=== PATIENT | female | born 1990 | race Caucasian/White ===

== ENCOUNTER 2020-06-17 07:28 | Inpatient (IN) | payer SELFPAY ==
[2020-06-17] VITALS (35 sets, daily range): BP systolic 0–170; BP diastolic 0–107; PULSE 73–104; RESP 16–23; TEMP 36.2–37.1; O2SAT 95–99; BMI 32.5
[2020-06-17] MEDS: dextrose 5%-lactated ringers 1,000 ML 125 ML IV (07:34)
[2020-06-17] MEDS: oxytocin 30 UNIT/500 ML BAG 600 UNIT IV (07:48)
--- NOTE | 2020-06-17 08:09 | PM.HP ---
Providers/Chief Complaint Admitting Physician: Andrew Renteria MD Chief Complaint: Abdominal pain History of Present Illness Madeline Castillo is a 30 year old G4 now P4 with unknown NASH who presented to labor and delivery with contractions and the need to push. The patient had no care and was planning to deliver at home. Her contractions started at 5:30 AM on 06/17/2020. The patient's pain continued to worsen and she presented to labor and delivery around 7:15 AM on 06/17/2020. I was contacted and unfortunately could not make it to the hospital on time for delivery of the . The patient does not know when her due date was. She was breast-feeding and was not having periods. The patient states that the last time they had unprotected sex was October 242019. That would put her at 36.6 weeks gestation. The patient denies any problems with the as far she knows, however she had no care. She says that she had high blood pressure with her prior . The patient denies any headaches, flashes of light, nausea, vomiting, diarrhea, constipation, fevers, cough. PFSH Acute PFSH: Surgical History (Updated 06/17/20 @ 08:16 by Andrew Renteria MD) No pertinent past surgical history Social History (Updated 06/17/20 @ 08:17 by Andrew Renteria MD) Smoking and tobacco status: never smoked Alcohol intake: former Former alcohol use details: Last alcohol was will be a year ago. Vitals/I&O/Wt Last Vital Signs Pulse 81 06/17/20 08:07 BP 147/80 06/17/20 08:07 Physical Exam Narrative: EXAM NARRATIVE: General: Alert and oriented x3 Eyes: Pupils equal round and reactive to light and accommodation Mouth: Mucous membranes moist, pharynx non-erythematous Cardiac: Regular rate and rhythm without murmurs Lungs: Clear to auscultation bilaterally without wheezes, crackles or rhonchi Abdomen: Soft, non-tender, fundus is firm and midline and well below the umbilicus. Extremities: Trace edema in the bilateral lower extremities A&P Assessment and plan (1) No care in current : Status: Acute (2) High blood pressure: Status: Acute (3) Intrauterine : Status: Acute Additional A&P Information The patient presented and had a precipitous delivery. Please see Labor and Delivery notes for full details. The patient has been having some heavier bleeding and she was given Cytotec 800 mcg rectally. Her bleeding is starting to slow down. She has a history of high blood pressure and her blood pressure is 147 systolic today. If needed we will give Hemabate as the next medication for bleeding control. Other than that the patient is doing well. We will get routine labs, urine drug screen, and plan for routine care otherwise. All questions were answered. Attestations Medical Necessity Statement*: The patient will be admitted and will likely be here for greater than 2 midnights. Coding Level of Care Code Acute Medical Assistant Ob Gyn for Rameshg Fwd Diagnoses No care in current O09.30 High blood pressure I10 Intrauterine Z34.90
--- NOTE | 2020-06-17 08:20 | PM.DELIVERY ---
Delivery Note: Date of delivery: June 17, 2020 Pre-delivery diagnoses: 1. Intrauterine with unknown NASH 2. History of gestational hypertension 3. History of vacuum-assisted delivery 4. History of minimal care and prior 5. No care during this Post-delivery diagnoses: 1. Intrauterine with unknown NASH 2. History of gestational hypertension 3. History of vacuum-assisted delivery 4. History of minimal care and prior 5. No care during this 6. Delivery of healthy-appearing weighing 10 pounds 0 ounces with Apgars of 8 and 9. Op report anesthesia: None Delivering Physician: I was not present for delivery of the infant but was present for delivery of the placenta. Estimated blood loss (mL): 200 Pre-Delivery Course: Roseanna is a 30-year-old G4 now P4 with unknown NASH who presented to labor and delivery via private vehicle with contractions. The OB nurse had to help the patient out of the car and into a wheelchair. The patient was pushing during this process. I was notified at 7:26 AM on 06/17/2020 that the patient was here and pushing. The patient continued to progress and SROM took place at 7:32 AM with meconium stained fluid. The head delivered at 7:34 AM. The delivered at 7:35 AM per nursing records. The cord was cut by nursing and the was taken to the warmer. Dr. Sales was in the hospital and present for delivery. I presented shortly afterwards. Cord blood was obtained. The cord was then drained of blood and the placenta delivered without complication at 7:48 AM. The placenta was noted to be intact with a central umbilical cord insertion site. The uterus was massaged and Pitocin was bolused. The uterus was noted to be firm and midline. The cervix was inspected and no clots were noted. The vaginal wall was inspected and a mild abrasion was noted on the right upper labia. The patient had some extra bleeding afterwards and 800 mcg of Cytotec were placed. We will follow for signs of further bleeding. We will give Hemabate if needed. A&P Assessment and plan (1) No care in current : Status: Acute (2) High blood pressure: Status: Acute (3) Intrauterine : Status: Acute Coding Level of Care Code Acute Clinical Applications Manager for Chg Fwd Diagnoses No care in current O09.30 High blood pressure I10 Intrauterine Z34.90
[2020-06-17] MEDS: miSOPROStol 200 mcg Tablet 800 MCG PR (08:30)
[2020-06-17] MEDS: docusate sodium 100 mg Capsule PO (09:04)
[2020-06-17] MEDS: ibuprofen 800 mg tablet PO (09:04)
[2020-06-17] MEDS: prenatal vitamin Capsule 1 CAP PO (09:04)
[2020-06-17 09:21] LABS: Hemoglobin 12.4 g/dL (11.5-15.3); Lymphocytes # 1.3 10^3/uL (0.8-4.8); Lymphocytes % 21.3 %; Mean Corpuscular HGB Conc 31.8 g/dL (30.0-36.0); Mean Corpuscular Hemoglobin 31.2 pg (28.0-34.0); Mean Corpuscular Volume 98.2 fL (81-99); Mean Platelet Volume 11.7 fL (7.4-10.4); Monocytes # 0.7 10^3/uL (0.2-0.9); Monocytes % 11.8 %; Neutrophils # 4.05 10^3/uL (1.8-7.7); Neutrophils % 66.2 %; Nucleated Red Blood Cells % 0 %; Platelet Count 186 10^3/cmm (130-400); Red Blood Count 3.97 10^6/uL (4.1-5.3); Red Cell Distribution Width 13.7 % (12.1-15.1); White Blood Count 6.1 10^3/uL (4.0-10.0)
[2020-06-17 09:33] LABS: Rubella IgG 14.1 IU/mL (0.0-10.0)
[2020-06-17 09:36] LABS: Amphetamines Screen Urine Negative (Negative); Barbiturates Screen Urine Negative (Negative); Benzodiazepines Screen Urine Negative (Negative); Cocaine Screen Urine Negative (Negative); Opiate Screen Urine Negative (Negative); PCP Screen Urine Negative (Negative); THC Screen Urine Negative (Negative)
[2020-06-17] MEDS: carboprost tromethamine 250 mcg/mL Amp IM (09:36)
[2020-06-17 09:45] LABS: Rapid Plasma Reagin Syphilis Nonreactive (Nonreactive)
[2020-06-17 10:00] LABS: Urine Creatinine 298 mg/dL (28-217)
[2020-06-17 10:12] LABS: UPRO/UCREAT Ratio 0.63 mg/mg CR; Urine Protein Random 189 mg/dL
[2020-06-17] MEDS: HYDROcodone-acetaminophen 5-325 mg Tablet PO (10:12)
[2020-06-17] MEDS: labetalol 5 mg/mL SDV 20mL 20 MG IVP (10:19)
[2020-06-17 10:24] LABS: HIV 1 & 2 Antibody Non-Reactive (Non-Reactiv); HIV 1 & 2 Antigen Non-Reactive (Non-Reactiv)
[2020-06-17 10:33] LABS: Hepatitis B Surface Antigen Non-Reactive (Nonreactive)
[2020-06-17] MEDS: magnesium sulfate premix 4 GM/100 ML PREMIX IV (11:00)
[2020-06-17] MEDS: dextrose 5%-lactated ringers 1,000 ML 75 ML IV (11:00)
[2020-06-17] MEDS: magnesium sulfate premix 20 GM/500 ML BAG IV ×2 (11:21→21:24)
[2020-06-17 12:20] LABS: SARS Covid-2 Antigen Negative (Negative)
--- NOTE | 2020-06-17 14:04 | PC.NURSE ---
Delivery Summary Patient arrived to ER by private vehicle. Patient pushing on arrival. Igor Solano RN instructed patient not to push and placed patient in wheelchair and brought to floor. Patient transferred to bed, SVE performed by Zuleima Puentes RN, SVE: /+1. Dr. Renteria contacted upon patient arrival to floor at 0726. Patient had no care and intended to have a home . Patient instructed not to push but continued to involuntarily push. SROM at 0732, meconium stained. Delivery of baby at 0735 by Igor Solano RN. Loose nuchal cord noted and easily reduced. Suctioned mouth and nose at perineum and then baby handed to Dr. Alexander at warmer. Dr. Renteria to room at 0745. Placenta delivered by Dr. Renteria at 0748. Patient bleeding noted to be heavy at 0805 and 800mcg cytotec was given per Dr. Renteria's orders.
--- NOTE | 2020-06-17 14:28 | PC.NURSE ---
Pt had no care.
[2020-06-17 18:34] LABS: Hematocrit 32.2 % (37.0-47.0); Hemoglobin 10.5 g/dL (11.5-15.3); Mean Corpuscular HGB Conc 32.6 g/dL (30.0-36.0); Mean Corpuscular Hemoglobin 31.6 pg (28.0-34.0); Mean Platelet Volume 10.9 fL (7.4-10.4); Platelet Count 161 10^3/cmm (130-400); Red Blood Count 3.32 10^6/uL (4.1-5.3); Red Cell Distribution Width 13.6 % (12.1-15.1); White Blood Count 5.7 10^3/uL (4.0-10.0)
[2020-06-17 18:40] LABS: Magnesium Level (OB Only) 3.9 mg/dL (5.0-7.5)
[2020-06-18] VITALS (16 sets, daily range): BP systolic 105–132; BP diastolic 16–89; PULSE 85–106; RESP 16–18; TEMP 36.4–36.8; O2SAT 96–99
[2020-06-18] MEDS: dextrose 5%-lactated ringers 1,000 ML 75 ML IV (00:29)
--- NOTE | 2020-06-18 00:31 | PC.NURSE ---
Ice chips provided
[2020-06-18 00:44] LABS: Magnesium Level (OB Only) 4.1 mg/dL (5.0-7.5)
[2020-06-18 07:23] LABS: Magnesium Level (OB Only) 4.5 mg/dL (5.0-7.5)
[2020-06-18] MEDS: magnesium sulfate premix 20 GM/500 ML BAG IV (07:58)
[2020-06-18] MEDS: prenatal vitamin Capsule 1 CAP PO (08:43)
--- NOTE | 2020-06-18 10:15 | PM.PN ---
Subjective Subjective: Interval history: The patient had elevated blood pressures after delivery into the 170s and had received labetalol wall IV. A spot urine protein creatinine ratio was done that was 0.62. Since the patient had no care and she had symptoms concerning for gestational hypertension with severe features and possibly preeclampsia with severe features, it was felt best to start her on IV magnesium. The patient has had some blurred vision with the magnesium, otherwise feels well. The patient feels that her bleeding is decreasing well. It started to decrease well after Hemabate was given yesterday. Vitals/I&O/Wt Last Vital Signs Temp 97.9 F 06/18/20 07:30 Pulse 95 06/18/20 07:30 Resp 18 06/18/20 07:30 BP 116/76 06/18/20 07:30 Pulse Ox 98 06/18/20 07:30 06/17/20 06/18/20 06/18/20 22:59 06:59 14:59 Intake Total 622.917 / 2063.750 436.25 / 2500.000 1026.25 / 1026.25 Output Total 2130 / 2830 2175 / 5005 100 / 100 Balance -1507.083 / -766.250 -1738.75 / -2505.000 926.25 / 926.25 Weight last 48 hrs Weight 220 lb Physical Exam Narrative: EXAM NARRATIVE: General: Alert and oriented x3 Eyes: Pupils equal round and reactive to light and accommodation Mouth: Mucous membranes moist, pharynx non-erythematous Cardiac: Regular rate and rhythm without murmurs Lungs: Clear to auscultation bilaterally without wheezes, crackles or rhonchi Abdomen: Soft, non-tender, fundus is firm and midline and well below the umbilicus. Extremities: Trace edema in the bilateral lower extremities Urinary Catheter Management^: Ferro: Cath Placed During This Visit: yes Reason for Continuing Indwelling Catheter: Accurate Measurement of Urinary Output in Critically Ill Patients Urinary Catheter Date of Insertion: 06/17/20 Urinary Catheter Time of Insertion: 11:10 Data : 06/17/20 17:44 Micro: Microbiology 06/17/20 08:50 Neisseria gonorrhoeae (YANY) - Final Urine Random 06/17/20 08:50 Chlamydia trachomatis (YANY) - Final Urine Random A&P Assessment and plan (1) No care in current : Status: Acute (2) Intrauterine : Status: Acute (3) Gestational hypertension: Status: Acute Additional A&P Information The patient is feeling well at this time and does have some blurred vision likely secondary to IV magnesium. Her urine output has been good and her blood pressures have been down in the 120s 130s systolic. We will go ahead and stop IV magnesium at 24 hours. We will continue to watch for a another 24 hours minimum to be sure that her blood pressures do not start to climb and that she does not have other complications. She is doing well currently. We will plan to proceed with routine care and plan for discharge home tomorrow if she continues to do well. All questions were answered. Attestations Medical Necessity Statement*: The patient will be here for greater than 2 midnights due to treatment of severe gestational hypertension . Coding Level of Care Code Acute Chemical Operations Specialist for Rameshg Fwd Diagnoses No care in current O09.30 Intrauterine Z34.90 Gestational hypertension O13.9
[2020-06-19 02:35] VITALS: BP 119/81; PULSE 89; RESP 16; O2SAT 98
[2020-06-19 04:15] VITALS: BP 118/80; PULSE 90; RESP 15; O2SAT 97
--- NOTE | 2020-06-19 07:38 | P.DS_ITS ---
Discharge Providers Date of Admission: 06/17/20 07:28 Date of Discharge: June 19, 2020 Attending Provider at Admission: Andrew Renteria MD Attending Provider at Discharge: Andrew Renteria MD Diagnoses at Discharge Discharge Diagnosis (1) No care in current : Status: Acute (2) Intrauterine : Status: Acute (3) Gestational hypertension: Status: Acute Other Information Additional DC diagnoses/information: 1. Intrauterine with unknown NASH 2. History of gestational hypertension with gestational hypertension with severe features during this 3. History of vacuum-assisted delivery 4. History of minimal care and prior 5. No care during this 6. Delivery of healthy-appearing infant weighing 10 pounds 0 ounces with Apgars of 8 and 9. Reason for Visit Reason for Visit: Abdominal pain Hospital Course Hospital Course: Pre-Delivery Course: Roseanna is a 30-year-old G4 now P4 with unknown NASH who presented to labor and delivery via private vehicle with contractions. The OB nurse had to help the patient out of the car and into a wheelchair. The patient was pushing during this process. I was notified at 7:26 AM on 06/17/2020 that the patient was here and pushing. The patient continued to progress and SROM took place at 7:32 AM with meconium stained fluid. The head delivered at 7:34 AM. The infant delivered at 7:35 AM per nursing records. The cord was cut by nursing and the was taken to the warmer. Dr. Sales was in the hospital and present for delivery. I presented shortly afterwards. Cord blood was obtained. The cord was then drained of blood and the placenta delivered without complication at 7:48 AM. The placenta was noted to be intact with a central umbilical cord insertion site. The uterus was massaged and Pitocin was bolused. The uterus was noted to be firm and midline. The cervix was inspected and no clots were noted. The vaginal wall was inspected and a mild abrasion was noted on the right upper labia. The patient had some extra bleeding afterwards and 800 mcg of Cytotec were placed. She continued to bleed, so was given Hemabate. Her bleeding improved after this. course: The patient had blood pressures that were in the 170s systolic and received labetalol IV. The patient was placed on IV magnesium for seizure prophylaxis. The patient's urine output and blood pressures improved and after 24 hours we were able to discontinue the IV magnesium. The patient was followed for another 24 hours and she has done well since. The patient's blood pressures are now in the normal range. We will have her keep her overall activity levels low and take her blood pressure at home. She is to report any concerning findings. The patient is to follow-up with me over the next week. Routine discharge instructions were discussed in detail. The patient is in agreement with discharge home at this time. All questions were answered. Physical Exam Narrative: EXAM NARRATIVE: General: Alert and oriented x3 Cardiac: Regular rate and rhythm without murmurs Lungs: Clear to auscultation bilaterally without wheezes, crackles or rhonchi Abdomen: Soft, non-tender, fundus is firm and midline and well below the umbilicus. Extremities: Trace edema in the bilateral lower extremities Urinary Catheter Management^: Ferro: Cath Placed During This Visit: yes, but has since been removed by the nurse Reason for Continuing Indwelling Catheter: Decision to DC Catheter Urinary Catheter Date of Insertion: 06/17/20 Urinary Catheter Time of Insertion: 11:10 Date Urinary Catheter Removed: 06/18/20 Time Urinary Catheter Discontinued: 10:45 Discharge Data Data Completed and Pending: Pending at discharge Category Date Time Status Group B Streptoco ccus Culture Stat Lab 06/17/20 07:52 Results Vitals: Last Vital Signs Temp 98.2 F 06/18/20 18:30 Pulse 90 06/19/20 04:15 Resp 15 06/19/20 04:15 BP 118/80 06/19/20 04:15 Pulse Ox 97 06/19/20 04:15 Discharge Plan Discharge Patient Disposition: Home Condition: Good Prescriptions: New ferrous sulfate 325 mg (65 mg iron) tablet 325 mg PO BID Qty: 30 RF: 0 ibuprofen 800 mg Tablet 800 mg PO TID Qty: 30 RF: 0 Continued 28-800 mg-mcg Tablet 1 tab PO DAILY RF: 0 Discharge Orders: Discharge Order (Routine); Ordered 06/19/20 Ordered By: Andrew Renteria Referrals: Andrew Renteria MD [Physician] - 1 week Discharge Diet: Regular Discharge Activity: Limit activity as instructed Patient Instructions: , Vitamins (By mouth), Breast Care for the Breast Feeding Mother (DC), Vaginal Delivery (DC), OB Discharge Report, OB Food/Drug Interaction Guide, OB Proud Parent Packet Activity Restrictions/Additional Instructions: Please check your blood pressure at home twice a day and if it is going above 150/100, please contact me at [facility] for further instruction. No baths for 6 weeks, however showers are okay. Nothing per vagina for 6 weeks. Discharge Attestations Time Spent in Discharge Care*: greater than 30 min Quality Metrics Clinical Quality Measures During this hospital stay, did patient experience: None Coding Level of Care Code Acute Consultant In Ergonomics And Safety for Chg Fwd Diagnoses No care in current O09.30 Intrauterine Z34.90 Gestational hypertension O13.9
[2020-06-19 11:07] VITALS: BP 139/93; PULSE 103; RESP 16; TEMP 36.7
== END 2020-06-19 12:00 | disposition home or self-care (01) | DRG 807 ==
LOC: OBGYN 07:42
PROVIDERS: Admitting Provider Family Medicine; Visit Provider Family Medicine
DX: O62.3 Precipitate labor (principal); Z37.0 Single live birth; O13.4 Gestational [pregnancy-induced] hypertension without significant proteinuria, complicating childbirth; Z3A.36 36 weeks gestation of pregnancy; O42.013 Preterm premature rupture of membranes, onset of labor within 24 hours of rupture, third trimester; P07.39 Preterm newborn, gestational age 36 completed weeks; P03.82 Meconium passage during delivery
CPT/HCPCS: 12345; 36415; 51702; 59409; 80306; 82570; 83735; 84156; 85025; 85027; 86592; 86762; 86850; 86900; 87081; 87340; 87426; 87491; 87591; 87806; 96372; 96375; 99211; J3475; J3490

== ENCOUNTER 2020-12-08 22:37 | Emergency (ER) | payer SELFPAY ==
[2020-12-08 22:51] VITALS: BP 131/95; PULSE 103; RESP 18; TEMP 36.1; O2SAT 99; BMI 34.0
--- NOTE | 2020-12-08 23:18 | ED_ITS ---
HPI - Extremity Problem General: Chief complaint: Extremity Problem,Nontraumatic Stated complaint: right arm numbness Time Seen by Provider: 12/08/20 23:14 Source: patient Mode of arrival: ambulatory Limitations: no limitations History of Present Illness: HPI Narrative: Patient is a 30-year-old female who presents to the emergency department today with a complaint of right arm pain and numbness. Patient tells me she has had pain in her right AC space ever since an IV was placed approximately 1.5 years ago. She states pain seems to be intermittent but over the last few days has been increasingly painful. She also noticed today that her entire arm feels numb. She has a history of chronic neck pain. MD Complaint: extremity pain and other (R arm numbness) Onset (ago): day(s) Pain Consistency: constant Location: left and upper extremity Relieving factors: nothing Exacerbating factors: nothing Associated symptoms: Reports no associated symptoms; Deny chest pain or fever(s) Review of Systems Const: Denies: fever(s) Card: Denies: chest pain Resp: Denies: dyspnea Musc: Reports: neck pain (chronic) and extremity pain (R arm); Denies: back pain, joint redness, joint warmth or limited range of motion Neuro: Reports: numbness in extremities (R arm) and sensory changes PFSH ED PFSH: Surgical History (Updated 06/17/20 @ 08:16 by Andrew Renteria MD) No pertinent past surgical history Social History (Updated 06/17/20 @ 08:17 by Andrew Renteria MD) Smoking and tobacco status: never smoked Alcohol intake: former Former alcohol use details: Last alcohol was will be a year ago. Physical Exam Const: COMMON NORMALS: no acute distress, patient oriented x3, no limitations and alert Neck/C-Spine: COMMON NORMALS: full ROM CERVICAL SPINE: No pain with cervical ROM, Yes Cervical spine tenderness (reports chronic tenderness ) and No Paracervical muscle tenderness Extremity: COMMON NORMALS: full ROM GENERAL: Yes normal exam except as noted OTHER: pt has tenderness, firmness, and swelling to R AC space most consistent with a superficial thrombus given pts history; no redness present Neuro: COMMON NORMALS: patient oriented x3 SENSORIUM/ORIENTATION: Yes alert SENSORY EXAM: Yes extremities (reports decreased sensation throughout R UE) MOTOR EXAM: 5/5 motor strength present throughout Skin: COMMON NORMALS: no rashes or lesions noted GENERAL SKIN EXAM: no rashes or lesions noted Course Vital Signs: Vital signs: Vital Signs Temperature 96.9 F L 12/08/20 22:51 Pulse Rate 103 H 12/08/20 22:51 Respiratory Rate 18 12/08/20 22:51 Blood Pressure 131/95 12/08/20 22:51 Pulse Oximetry 99 12/08/20 22:51 MDM - Extremity (Nontraumatic) MDM Narrative: Medical decision making narrative: Patient has no specific dermatome distribution to her paresthesias. Her CT cervical spine is normal. She has no DVT or arterial occlusion on ultrasound imaging. She does have nonspecific findings of slow flow throughout her cephalic vein. This is also dilated. This corresponds to where patient is tender to her AC space. This would not explain her paresthesias however. Strength and reflexes in her upper extremity are preserved. Recommend follow-up with her primary care provider. Discussed possibly obtaining nerve conduction studies if they feel indicated. Return to ED precautions given. Imaging Data^: CT cervical: Radiologist's impression: [address] [address] [address] Scan Report Signed Patient: Madeline Castillo #: [id number] : 1990Acct#:[id number] Age/Sex: Date: 12/08/20 Loc: [facility] [place]/Bed: Attending Dr: Ordering Provider/Ordering MD: Petra Sue Date of Service: 12/08/20 Procedure(s): CT cervical spin wo con* [id number] Accession Number(s): [id number] Report Number: [id number] PROCEDURE INFORMATION: Exam: CT Cervical Spine Without Contrast Exam date and time: 12/08/2020 11:55 PM Age: 30 years old Clinical indication: Patient HX: Numbness to right hand. No recent injury. ; Additional info: R arm numbness TECHNIQUE: Imaging protocol: Computed tomography images of the cervical spine without contrast. Radiation optimization: All CT scans at this facility use at least one of these dose optimization techniques: automated exposure control; mA and/or kV adjustment per patient size (includes targeted exams where dose is matched to clinical indication); or iterative reconstruction. COMPARISON: No relevant prior studies available. RADIATION DOSE METRICS: Total DLP (mGy-cm): 1081.37 FINDINGS: Bones/joints: There is normal vertebral body alignment. There are normal vertebral body heights. The dens is intact. The lateral masses of C1 are symmetric. No fracture. Discs/Spinal canal/Neural foramina: Craniocervical articulation is normal. Atlantodental interval and prevertebral soft tissues are normal. No canal or foraminal stenosis. Lungs: Lung apices are normal. Soft tissues: Unremarkable. CT/CT cervical spin wo con* [id number] IMPRESSION: Negative examination of the cervical spine. Radiation Dose CTDIVOL = (mGy): DLP = 1081.37 (mGy-cm) Dictated By:Matt Nelson Signed By:Syd Nelson Date/Time:12/09/2017 DD/ US venous: My impression: Spoke to [employer] tech-she visualized normal arterial flow as well to extremity; no soft tissue abnormalities to patient's AC space Radiologist's impression: [address] [address] Ultrasound Report Signed Patient: Madeline Castillo #: [id number] : 1990Acct#:[id number] Age/Sex: 30 M Date: 12/08/20 Loc: [facility] [place]/Bed: Attending Dr: Ordering Provider/Ordering MD: Petra Sue Date of Service: 12/09/20 Procedure(s): [place] [id number] Accession Number(s): [id number] Report Number: [id number] PROCEDURE INFORMATION: Exam: US Duplex Right Upper Extremity Veins, Limited Exam date and time: 12/09/2020 12:31 AM Age: 30 years old Clinical indication: Arm, upper; Right; Patient HX: Pain in RT ac space since iv was place in this area 1 year ago; Additional info: Ttp, swelling, possible clot mainly to R ac space TECHNIQUE: Imaging protocol: Real-time Duplex ultrasound of the Right Upper Extremity with 2-D gould scale, color Doppler flow and spectral waveform analysis with image documentation. Limited exam focused on the right upper extremity veins. COMPARISON: No relevant prior studies available. FINDINGS: Right deep veins: Unremarkable. Axillary and brachial veins are patent throughout without thrombus. Normal Doppler waveforms. Normal compressibility and/or augmentation response. Visualized internal jugular and subclavian veins are patent. Right superficial veins: There is slow flow and dilation of the right cephalic vein at the AC space. Compression at this area was limited due to patient discomfort. Soft tissues: Unremarkable. US/[place] [id number] IMPRESSION: Dilated cephalic vein with slow flow. No definite thrombophlebitis. Dictated By:Matt Nelson Signed By:Syd Nelson Date/Time:12/09/20144 DD/ 3 Discharge Plan Discharge Patient Disposition: Home Clinical Impression: Paresthesia of right arm Condition: Stable Prescriptions: No Action 28-800 mg-mcg Tablet 1 tab PO DAILY RF: 0 ibuprofen 800 mg Tablet 800 mg PO TID Qty: 30 RF: 0 ferrous sulfate 325 mg (65 mg iron) tablet 325 mg PO BID Qty: 30 RF: 0 Discharge Orders: Discharge ED (Routine); Ordered 12/09/20 Ordered By: Petra Sue Referrals: Dot Negrete APN [Primary Care Provider] - Coding Level of Care Code ED Software Design Analyst for Chg Fwd Exam Detailed
--- NOTE | 2020-12-08 23:53 | CTR_ITS ---
PROCEDURE INFORMATION: Exam: CT Cervical Spine Without Contrast Exam date and time: 12/08/2020 11:55 PM Age: 30 years old Clinical indication: Patient HX: Numbness to right hand. No recent injury. ; Additional info: R arm numbness TECHNIQUE: Imaging protocol: Computed tomography images of the cervical spine without contrast. Radiation optimization: All CT scans at this facility use at least one of these dose optimization techniques: automated exposure control; mA and/or kV adjustment per patient size (includes targeted exams where dose is matched to clinical indication); or iterative reconstruction. COMPARISON: No relevant prior studies available. RADIATION DOSE METRICS: Total DLP (mGy-cm): 1081.37 FINDINGS: Bones/joints: There is normal vertebral body alignment. There are normal vertebral body heights. The dens is intact. The lateral masses of C1 are symmetric. No fracture. Discs/Spinal canal/Neural foramina: Craniocervical articulation is normal. Atlantodental interval and prevertebral soft tissues are normal. No canal or foraminal stenosis. Lungs: Lung apices are normal. Soft tissues: Unremarkable. CT/CT cervical spin wo con* [id number] IMPRESSION: Negative examination of the cervical spine. Radiation Dose CTDIVOL = (mGy): DLP = 1081.37 (mGy-cm)
--- NOTE | 2020-12-09 | USR_ITS ---
PROCEDURE INFORMATION: Exam: US Duplex Right Upper Extremity Veins, Limited Exam date and time: 12/09/2020 12:31 AM Age: 30 years old Clinical indication: Arm, upper; Right; Patient HX: Pain in RT ac space since iv was place in this area 1 year ago; Additional info: Ttp, swelling, possible clot mainly to R ac space TECHNIQUE: Imaging protocol: Real-time Duplex ultrasound of the Right Upper Extremity with 2-D gould scale, color Doppler flow and spectral waveform analysis with image documentation. Limited exam focused on the right upper extremity veins. COMPARISON: No relevant prior studies available. FINDINGS: Right deep veins: Unremarkable. Axillary and brachial veins are patent throughout without thrombus. Normal Doppler waveforms. Normal compressibility and/or augmentation response. Visualized internal jugular and subclavian veins are patent. Right superficial veins: There is slow flow and dilation of the right cephalic vein at the AC space. Compression at this area was limited due to patient discomfort. Soft tissues: Unremarkable. US/[place] [address] IMPRESSION: Dilated cephalic vein with slow flow. No definite thrombophlebitis.
[2020-12-09 02:25] VITALS: BP 116/86; PULSE 92; RESP 16; TEMP 36.4; O2SAT 98
== END 2020-12-09 02:25 | disposition home or self-care (01) ==
PROVIDERS: Emergency Provider Physician Assistant; PCP Nurse Practitioner Family
DX: R20.2 Paresthesia of skin (principal)
CPT/HCPCS: 72125; 93971; 99283

== ENCOUNTER 2023-12-13 16:51 | Inpatient (IN) | payer SELFPAY ==
[2023-12-13] VITALS (63 sets, daily range): BP systolic 114–182; BP diastolic 58–112; PULSE 82–130; RESP 16; TEMP 36–36.7; O2SAT 91–100
[2023-12-13 14:26] LABS: Amphetamines Screen Urine Negative (Negative); Barbiturates Screen Urine Negative (Negative); Benzodiazepines Screen Urine Negative (Negative); Cocaine Screen Urine Negative (Negative); Opiate Screen Urine Negative (Negative); PCP Screen Urine Negative (Negative); THC Screen Urine Negative (Negative)
[2023-12-13 14:40] LABS: Hepatitis B Surface Antigen Non-Reactive (Nonreactive); Rubella IgG 15.8 IU/mL (0.0-10.0)
[2023-12-13 14:44] LABS: Rapid Plasma Reagin Syphilis Nonreactive (Nonreactive)
[2023-12-13 14:45] LABS: HIV 1 & 2 Antibody Non-Reactive (Non-Reactiv); HIV 1 & 2 Antigen Non-Reactive (Non-Reactiv)
[2023-12-13 15:20] LABS: Glucose Urine UA Norm (Normal); Ketones Urine 1+ (Negative); Protein Urine 1+ (Negative); Specific Gravity, Urine 1.015 (1.005-1.030); Urine Appearance Cloudy (CLEAR); Urine Color Yellow (Yellow); pH Urine 6 (5-7)
[2023-12-13 15:21] LABS: Add Urine Culture? Yes; Bacteria Urine 2+ /hpf; Bilirubin Urine Neg (Negative); Blood Urine 3+ (Negative); Leukocyte Esterase Urine 1+ (Negative); Mucus Urine TRACE /hpf; Nitrate Urine Negative (Negative); Urobilinogen Urine Norm (Negative)
[2023-12-13 15:25] LABS: Basophils % 0.1 %; Eosinophils % 0.3 %; Lymphocytes # 1.1 10^3/uL (0.8-4.8); Lymphocytes % 11.8 %; Mean Corpuscular HGB Conc 33.3 g/dL (30-55); Mean Corpuscular Hemoglobin 31.5 pg (27-33); Mean Corpuscular Volume 94.6 fl (85-98); Mean Platelet Volume 11.1 fL (7.4-10.4); Monocytes # 0.7 10^3/uL (0.2-0.9); Monocytes % 7.5 %; Neutrophils # 7.11 10^3/uL (1.8-7.7); Neutrophils % 79.9 %; Nucleated Red Blood Cells % 0 %; Platelet Count 196 10^3/cmm (157-399); Red Blood Count 3.49 10^6/uL (3.85-5.65); Red Cell Distribution Width 13.8 % (12.1-15.1); White Blood Count 8.91 10^3/uL (3.29-11.43)
[2023-12-13] MEDS: ampicillin 2,000 MG in sodium chloride 0.9% (plus) 50 ML 100 MG IV (16:54)
[2023-12-13] MEDS: lactated ringers 1,000 ML 999 ML IV (16:57)
--- NOTE | 2023-12-13 17:51 | P.HP_ITS ---
Providers/Chief Complaint 2 Admitting Physician: Andrew Renteria MD Primary Care Provider: Dot Negrete APN Chief Complaint: ctx History of Present Illness Madeline Castillo is a 33 year old at 39.2 weeks gestation by LMP. Patient has not had an ultrasound. The patient has had no care other than 2 visits with her nurse practitioner Alayna Negrete. Her is complicated by no care again, GBS unknown, history of preeclampsia, elevated blood pressure in OB triage, obesity, history of vacuum-assisted vaginal delivery. I am seeing the patient on a card file system as she had no care. Surprisingly, this is the third that I have seen her on the card file system. The patient began to have contractions at 4:30 AM on 12/13/2023. They gradually increased and she presented to labor and delivery triage at approximately 1:15 PM on 12/13/2023. She had regular contractions and changed from 4 cm to 6 cm over the course of 3 hours. During that timeframe she had leakage of fluid that was consistent with spontaneous rupture membranes. Her contractions are starting to increase in strength and have been every 2 to 3 minutes. For this reason she was kept for spontaneous labor. The patient has been monitoring her blood pressures at home and they have been in the 120s over 80s. She states that she has not had elevated blood pressures prior to arrival. The patient denies any chest pains, shortness of breath, nausea, vomiting, flashes of light, headache. She denies leakage of fluid prior to arrival and dysuria. Medications/Allergies Home Medications Medication Instructions Recorded Confirmed Last Taken Type vit no.133-ferrous 1 tab PO DAILY 06/17/20 06/17/20 06/16/20 21:00 History fumarate 28 mg-folic acid 800 mcg 1 tab tablet () ferrous sulfate 325 mg (65 mg 325 mg PO BID #30 tabs 06/19/20 Unknown Rx iron) tablet ibuprofen 800 mg tablet 800 mg PO TID #30 tabs 06/19/20 Unknown Rx Allergies Allergy/AdvReac Type Severity Reaction Status Date / Time No Known Allergies Allergy Verified 12/08/20 22:57 PFSH Acute 2 PFSH: Surgical History No pertinent past surgical history Social History (Updated 12/13/23 @ 17:59 by Andrew Renteria MD) Smoking and tobacco/nicotine status: never used tobacco/nicotine Alcohol intake: former Former alcohol use details: . Female Reproductive History: : 5 Vitals/I&O/Wt Last Vital Signs Temp 98.0 F 12/13/23 16:44 Pulse 92 12/13/23 17:40 Resp 16 12/13/23 16:44 BP 150/96 12/13/23 17:40 O2 Del Method Room Air 12/13/23 17:00 Weight last 48 hrs Weight 9.718 oz Weight 9.718 oz Physical Exam 2 Narrative: General: Alert and oriented x3 Eyes: Pupils equal round and reactive to light and accommodation Mouth: Mucous membranes moist, pharynx non-erythematous Cardiac: Regular rate and rhythm without murmurs Lungs: Clear to auscultation bilaterally without wheezes, crackles or rhonchi Abdomen: Soft, non-tender, fundus consistent with gestational age Extremities: Trace edema in the bilateral lower extremities Data 12/13/23 13:56 A&P Assessment and plan (1) Spontaneous onset of labor: (2) Supervision of high risk , unspecified, third trimester: Attestations 2 Medical Necessity Statement*: The patient will be here for greater than 2 midnights due to routine intrapartum and management of labor and delivery. Coding Level of Care Code Acute Code for Chg Fwd Diagnoses Spontaneous onset of labor Supervision of high risk , unspecified, third trimester O09.93 History History History 2 5 Term 4 Miscarriages/Ectopic Living Children 4 Visit NASH Calculator 2 Estimated Delivery Date Method Current WG Current Estimate 12/18/23 LMP (Certain) 39w 2d
[2023-12-13] MEDS: ROPivacaine syringe 100 MG/50 ML SYRINGE 10 MG EPIDURAL (18:12)
[2023-12-13] MEDS: dextrose 5%-lactated ringers 1,000 ML 125 ML IV (18:13)
--- NOTE | 2023-12-13 18:13 | ANES.PROC ---
Anesthesia Procedures Procedure/Date: 12/13/23 labor epidural Epidural: Time Out Performed: Yes Consents Signed: Procedure Consent Consent: from patient, risks and benefits reviewed and patient agrees to proceed Lumbar Level: L3-L4 Epidural position: sitting Epidural procedure: sterile prep of area, 1% lidocaine to numb the area, 18 g needle, negative for paresthesia passed, neg for paresthesia, test dose given, 1.5% xylocaine 1:200k epi, placed PCEA, no systemic response, sterile dressing applied, L.U.D. no apparent complications and 0.2% Ropiavacaine @ mls/hr (10) Additional Comments: KENNY at 8, negative blood/CSF upon aspiration. catheter threaded to 14.
--- NOTE | 2023-12-13 18:14 | ANES.PREANE2 ---
Pre-Anesthetic Assessment Height/Weight: Height 1.75 m Weight 275.5 g Temp Pulse Resp BP Pulse Ox O2 Del Method 98.0 F 102 H 16 154/108 99 Room Air 12/13/23 16:44 12/13/23 18:12 12/13/23 16:44 12/13/23 18:10 12/13/23 18:12 12/13/23 17:00 Preop Diagnosis: IUP labor epidural Familial anesthetic complications: none Was Beta Jyoti taken within 24 hours: N/A Was Clonidine taken within 24 hours: N/A Social No alcohol and No tobacco Exam alert and oriented x 3 Airway Submandibular: within normal limits Cervical ROM: within normal limits Mallampati: Class II Dentition: full History/ROS No significant complaints Anesthetic Plan ASA status: 2 Anesthesia: Anesthesia Evaluation and Regional (specify below) (epidural) Medications/Allergies Home Medications Medication Instructions Recorded Confirmed Last Taken Type vit no.133-ferrous 1 tab PO DAILY 06/17/20 06/17/20 06/16/20 21:00 History fumarate 28 mg-folic acid 800 mcg 1 tab tablet () ferrous sulfate 325 mg (65 mg 325 mg PO BID #30 tabs 06/19/20 Unknown Rx iron) tablet ibuprofen 800 mg tablet 800 mg PO TID #30 tabs 06/19/20 Unknown Rx Allergies Allergy/AdvReac Type Severity Reaction Status Date / Time No Known Allergies Allergy Verified 12/08/20 22:57 Current Medications Generic Name Dose Route Start Last Admin Trade Name Freq PRN Reason Stop Dose Admin Dextrose/Lactated Ringer's 1,000 mls @ 125 mls/hr 12/13/23 16:45 12/13/23 18:13 Dextrose 5%-Lactated Ringers IV 125 mls/hr .Q8H REGINA Administration Lactated Ringer's 1,000 mls @ 999 mls/hr 12/13/23 16:44 12/13/23 16:57 Lactated Ringers IV 999 mls/hr .Q1H1M PRN Administration See label comments Ropivacaine 100 mg in 50 mls @ 10 mls/hr 12/13/23 16:45 12/13/23 18:12 Naropin Syringe EPIDURAL 10 mls/hr .Q5H REGINA Administration PFSH Anesthesia Surgical History No pertinent past surgical history Social History (Updated 12/13/23 @ 17:59 by Andrew Renteria MD) Smoking and tobacco/nicotine status: never used tobacco/nicotine Alcohol intake: former Former alcohol use details: . Female Reproductive History : 5 Data Anesthesia 12/13/23 13:56 Short CBC 12/13/23 Range/Units 13:56 WBC 8.91 (3.29-11.43) 10^3/uL Hgb 11.00 L (11.27-16.99) g/dL Hct 33.0 L (36-47) % MCV 94.6 (85-98) fl Plt Count 196 (157-399) 10^3/cmm Neut % (Auto) 79.9 % Neut # (Auto) 7.11 (1.8-7.7) 10^3/uL Urine 12/13/23 Range/Units 13:10 Urine Color Yellow (Yellow) Urine Appearance Cloudy A (CLEAR) Urine pH 6 (5-7) Ur Specific [place] 1.015 (1.005-1.030) Urine Protein 1+ H (Negative) Urine Glucose (UA) Norm (Normal) Urine Ketones 1+ H (Negative) Urine Nitrate Negative (Negative) Urine Bilirubin Neg (Negative) Ur Leukocyte Esterase 1+ H (Negative) Urine RBC 10-15 H (0-2) /hpf Urine WBC 5-10 H (0-5) /hpf Blood Bank 12/13/23 13:56 Blood Type O Positive Rho(D) Type Rh positive Antibody Screen Negative Cardiac Studies: No Data to Display
[2023-12-13 18:45] LABS: Alanine Aminotransferase 7 U/L (0-33); Albumin Level 3.2 g/dL (3.5-5.2); Alkaline Phosphatase 118 U/L (35-105); Anion Gap 18.7 (5-19); Aspartate Amino Transferase 13 U/L (0-32); Blood Urea Nitrogen 7 mg/dL (6-20); Calcium 8.6 mg/dL (8.5-10.5); Carbon Dioxide 19 mmol/L (22-29); Chloride 103 mmol/L (98-107); Creatinine Clr Calc Pharmacy 0.5865; Globulin 3.2 g/dL (1.3-4.6); Glomerular Filtration Rate 115.9 mL/min (90-130); Glucose 127 mg/dL (65-115); Osmolality Calculated 284 mOsm/kg (285-295); Potassium 3.7 mmol/L (3.5-5.1); Sodium 137 mmol/L (136-145); Total Bilirubin 0.2 mg/dL (0.15-1.2); Total Protein 6.4 g/dL (6.6-8.7); Uric Acid 5.8 mg/dL (2.4-5.7)
[2023-12-13 18:51] LABS: Urine Creatinine 132 mg/dL (28-217)
[2023-12-13 18:52] LABS: UPRO/UCREAT Ratio 0.27 mg/mg CR; Urine Protein Random 36 mg/dL
--- NOTE | 2023-12-13 19:39 | P.PCNOB_ITS ---
Delivery Note: Date of delivery: December 13, 2023 Pre-delivery diagnoses: 1. Intrauterine at 39.2 weeks gestation 2. No care 3. GBS unknown 4. History of preeclampsia 5. Elevated blood pressure upon admissi on 6. Obesity 7. History of vacuum-assisted vaginal d elivery Post-delivery diagnoses: 1. Intrauterine status post s pontaneous vaginal delivery at 39.2 weeks gestation 2. No care 3. GBS unknown 4. History of preeclampsia 5. Elevated blood pressure upon admissi on 6. Obesity 7. History of vacuum-assisted vaginal d elivery 8. Delivery of healthy infant female we ighing 9 pounds 5 ounces with Apgars of 9 and 9 Procedure: Spontaneous vaginal delivery Delivering Physician: Andrew Renteria MD Estimated blood loss (mL): 50 Findings: 1. Healthy appearing female infant weig dannielle 9 pounds 5 ounces with Apgars of 9 and 9 2. Intact placenta with central umbilic al cord insertion site. Pre-Delivery Course: Madeline Castillo is a 33 year old G5 now P5 status post spontaneous vaginal delivery at 39.2 weeks gestation by LMP. Patient has not had an ultrasound. The patient has had no care other than 2 visits with her nurse practitioner Alayna Negrete. Her is complicated by no care again, GBS unknown, history of preeclampsia, elevated blood pressure in OB triage, obesity, history of vacuum-assisted vaginal delivery. I am seeing the patient on a card file system as she had no care. Surprisingly, this is the third that I have seen her on the card file system. The patient began to have contractions at 4:30 AM on 12/13/2023. They gradually increased and she presented to labor and delivery triage at approximately 1:15 PM on 12/13/2023. She had regular contractions and changed from 4 cm to 6 cm over the course of 3 hours. During that timeframe she had leakage of fluid that was consistent with spontaneous rupture membranes. Her contractions are starting to increase in strength and have been every 2 to 3 minutes. For this reason she was kept for spontaneous labor. The patient has been monitoring her blood pressures at home and they have been in the 120s over 80s. She states that she has not had elevated blood pressures prior to arrival. The patient denies any chest pains, shortness of breath, nausea, vomiting, flashes of light, headache. She denies leakage of fluid prior to arrival and dysuria. The patient may change on her own and no augmentation of labor was needed. Spontaneous rupture membranes took place at 1615. She was complete by 192 on 12/13/2023. She received 1 dose of ampicillin but did not have time to receive the second. Delivery: The patient began pushing at 1921 on 12/13/2023. Patient pushed well and the infant delivered in the OA position at 1926 on 12/13/2023. No nuchal cord was noted. The infant's left shoulder was the anterior shoulder. Steady downward pressure was needed to deliver the left shoulder. This took approximately 30 seconds. The rest of the infant delivered without complication. The infant's mouth and nose were bulb suction by myself and the began to cry shortly after delivery. The had good tone. The was placed on the mother's chest where the nurses were waiting to care for her. The 's cord was clamped by myself and cut by the infant's father after approximately 1 minute. Cord blood was then obtained and traction was placed on the umbilical cord and the uterus was massaged. The placenta delivered without complication at 193 on 12/13/2023. The placenta was noted to be intact with a central umbilical cord insertion site. The cervix was inspected and no lacerations were noted. The vaginal wall was inspected and a few scattered abrasions were noted without any lacerations. No suturing was needed. The patient's bleeding is very little at this time. Currently both the mother and infant are doing well. Estimated blood loss was 50 mL. History History History 5 Term 5 Miscarriages/Ectopic Living Children 5 Past Pregnancies Del. Date GA/Weeks Outcome Route Wt Inf Gender Labor Lgth Comp. Anesth esia Location 12/13/23 39 live - full term Vaginal 9 lb 5 oz Female 15 regional [facility] Delivery Date: 12/13/23 Last Updated by: Andrew Renteria MD No care, elevated BP upon arrival. No shoulder dystocia but steady pressure needed for shoulder. A&P Assessment and plan (1) Supervision of high risk , unspecified, third trimester: (2) Spontaneous vaginal delivery: Coding Level of Care Code Acute Code for Chg Fwd Diagnoses Supervision of high risk , unspecified, third trimester O09.93 Spontaneous vaginal delivery O80
[2023-12-13] MEDS: labetalol 5 mg/mL SDV 20mL 20 MG IVP (22:01)
--- NOTE | 2023-12-13 23:47 | PC.NURSE ---
Hotline made due to lack of care
[2023-12-14] VITALS (9 sets, daily range): BP systolic 121–151; BP diastolic 31–91; PULSE 84–110; RESP 17–18; TEMP 36.6–36.7; O2SAT 96–97
[2023-12-14] MEDS: ibuprofen 800 mg tablet PO (09:12)
[2023-12-14] MEDS: PRENATAL VIT NO.130/IRON/FOLIC 1 EACH TABLET PO (09:12)
[2023-12-14] MEDS: docusate sodium 100 mg Capsule PO (09:12)
[2023-12-14 09:39] LABS: Hematocrit 30.8 % (36-47); Mean Corpuscular HGB Conc 32.8 g/dL (30-55); Mean Corpuscular Hemoglobin 31.3 pg (27-33); Mean Corpuscular Volume 95.4 fl (85-98); Mean Platelet Volume 10.7 fL (7.4-10.4); Platelet Count 145 10^3/cmm (157-399); Red Blood Count 3.23 10^6/uL (3.85-5.65); Red Cell Distribution Width 13.9 % (12.1-15.1); White Blood Count 7.36 10^3/uL (3.29-11.43)
--- NOTE | 2023-12-14 09:49 | P.PN_ITS ---
Subjective 2 Subjective: The patient is feeling well today. Her bleeding is decreasing well. She had some increased bleeding yesterday that slowed down after voiding. She is ambulating, voiding and tolerating food by mouth. Her pain is minimal. Her blood pressures were elevated yesterday afternoon and she received 1 dose of labetalol IV. I have been significantly better since then. Vitals/I&O/Wt Last Vital Signs Temp 97.9 F 12/14/23 09:15 Pulse 102 H 12/14/23 09:15 Resp 17 12/14/23 09:15 BP 136/82 12/14/23 09:15 Pulse Ox 97 12/14/23 09:15 O2 Del Method Room Air 12/14/23 09:15 12/13/23 12/14/23 12/14/23 22:59 06:59 14:59 Intake Total 20 / 20 Output Total 150 / 150 Balance -150 / -150 20 / -130 Weight last 48 hrs Weight 9.718 oz Weight 9.718 oz Physical Exam 2 Narrative: General: Alert and oriented x3 Cardiac: Regular rate and rhythm without murmurs Lungs: Clear to auscultation bilaterally without wheezes, crackles or rhonchi Abdomen: Soft, mild tenderness over uterus. The uterus is firm and 2 cm below the umbilicus. Extremities: Trace edema in the bilateral lower extremities Urinary Catheter Management: Ferro: Cath Placed During This Visit: yes, but has since been removed by the nurse Reason for Continuing Indwelling Catheter: Required Immobilization for Trauma or Surgery or Anesthesia Urinary Catheter Date of Insertion: 12/13/23 Urinary Catheter Time of Insertion: 18:48 Date Urinary Catheter Removed: 12/13/23 Time Urinary Catheter Discontinued: 19:22 Data 12/14/23 09:05 12/13/23 13:56 Micro: Microbiology 12/13/23 13:10 Urine Culture - Preliminary Urine,Clean Catch A&P Assessment and plan (1) Spontaneous vaginal delivery: The patient is doing well overall after vaginal delivery. She had some elevated blood pressures yesterday but these have improved and she is currently not needing anything more. We will continue to monitor her blood pressure and follow. We will plan to discharge home tomorrow as long as everything is going well. Routine instructions discussed. (2) Elevated blood pressure reading: Attestations 2 Medical Necessity Statement*: The patient will be here for greater than 2 midnights due to routine intrapartum and management of labor and delivery. Coding Level of Care Code Acute Code for Chg Fwd Diagnoses Spontaneous vaginal delivery O80 Elevated blood pressure reading R03.0
[2023-12-15 04:00] VITALS: BP 157/101; PULSE 91; RESP 16; TEMP 36.8; O2SAT 95
[2023-12-15 05:00] VITALS: BP 125/81
--- NOTE | 2023-12-15 08:34 | P.DS_ITS ---
Discharge Providers Date of Admission: 12/13/23 16:51 Date of Discharge: December 15, 2023 Attending Provider at Admission: Andrew Renteria MD Attending Provider at Discharge: Andrew Renteria MD Primary Care Provider: Dot Negrete APN Diagnoses at Discharge Discharge Diagnosis (1) Spontaneous vaginal delivery: Status: Acute (2) Elevated blood pressure reading: Status: Acute Other Information Additional DC diagnoses/information: 1. Intrauterine status post spontaneous vaginal delivery at 39.2 weeks gestation 2. No care 3. GBS unknown 4. History of preeclampsia 5. Elevated blood pressure consistent with mild gestational hypertension 6. Obesity 7. History of vacuum-assisted vaginal delivery 8. Delivery of healthy infant female weighing 9 pounds 5 ounces with Apgars of 9 and 9 Reason for Visit Reason for Visit: ctx Brief History: Madeline Castillo is a 33 year old G5 now P5 status post spontaneous vaginal delivery at 39.2 weeks gestation by LMP. Patient has not had an ultrasound. The patient has had no care other than 2 visits with her nurse practitioner Alayna Negrete. Her is complicated by no care again, GBS unknown, history of preeclampsia, elevated blood pressure in OB triage, obesity, history of vacuum-assisted vaginal delivery. I am seeing the patient on a card file system as she had no care. Surprisingly, this is the third that I have seen her on the card file system. The patient began to have contractions at 4:30 AM on 12/13/2023. They gradually increased and she presented to labor and delivery triage at approximately 1:15 PM on 12/13/2023. She had regular contractions and changed from 4 cm to 6 cm over the course of 3 hours. During that timeframe she had leakage of fluid that was consistent with spontaneous rupture membranes. Her contractions are starting to increase in strength and have been every 2 to 3 minutes. For this reason she was kept for spontaneous labor. Procedure: Sp ontaneous vaginal delivery Delive ring Physician: Andrew Renteria MD Estimated blood loss (mL): 50 Fi ndings: 1. Hea lthy appearing fem vero infant weighin g 9 pounds 5 ounce s with Apgars of 9 and 92. Intact p lacenta with centr al umbilical cord insertion site. Pre-Delivery Cours e: Delivery: Hospital Course Hospital Course The patient has been monitoring her blood pressures at home and they have been in the 120s over 80s. She states that she has not had elevated blood pressures prior to arrival. The patient denies any chest pains, shortness of breath, nausea, vomiting, flashes of light, headache. She denies leakage of fluid prior to arrival and dysuria. The patient made change on her own and no augmentation of labor was needed. Spontaneous rupture membranes took place at 1615. She was complete by 192 on 12/13/2023. She received 1 dose of ampicillin but did not have time to receive the second. The patient began pushing at 192 on 12/13/2023. Patient pushed well and the infant delivered in the OA position at 192 on 12/13/2023. No nuchal cord was noted. The infant's left shoulder was the anterior shoulder. Steady downward pressure was needed to deliver the left shoulder. This took approximately 30 seconds. The rest of the delivered without complication. The infant's mouth and nose were bulb suction by myself and the infant began to cry shortly after delivery. The had good tone. The was placed on the mother's chest where the nurses were waiting to care for her. The 's cord was clamped by myself and cut by the 's father after approximately 1 minute. Cord blood was then obtained and traction was placed on the umbilical cord and the uterus was massaged. The placenta delivered without complication at 193 on 12/13/2023. The placenta was noted to be intact with a central umbilical cord insertion site. The cervix was inspected and no lacerations were noted. The vaginal wall was inspected and a few scattered abrasions were noted without any lacerations. No suturing was needed. , the patient has done well overall. She did have 1 episode of severe blood pressures and received a dose of labetalol IV. Her blood pressure since have been in the normal range in the 120s to 130s over 80s the majority of the time with a couple spikes into the 150s over 100s. We discussed this and I will prescribe labetalol 100 mg to be taken on an as-needed basis. She is to keep her activity levels low for the next 2 weeks and if having further problems with gestational hypertension to return for reevaluation. The patient's bleeding is decreasing well. She is ambulating, voiding, passing gas and tolerating food by mouth. Overall she is stable at this time and ready for discharge. Physical Exam Narrative: General: Alert and oriented x3 Cardiac: Regular rate and rhythm without murmurs Lungs: Clear to auscultation bilaterally without wheezes, crackles or rhonchi Abdomen: Soft, mild tenderness over uterus. The uterus is firm and 2 cm below the umbilicus. Extremities: +1 edema in the bilateral lower extremities Urinary Catheter Management: Ferro: Cath Placed During This Visit: yes, but has since been removed by the nurse Reason for Continuing Indwelling Catheter: Required Immobilization for Trauma or Surgery or Anesthesia Urinary Catheter Date of Insertion: 12/13/23 Urinary Catheter Time of Insertion: 18:48 Date Urinary Catheter Removed: 12/13/23 Time Urinary Catheter Discontinued: 19:22 Discharge Data Studies Completed and Pending Pending at discharge Category Date Time Status Chlamydia/Gonorrh RNA,TMA URO Stat Lab 12/13/23 13:10 Stop Req Urine Culture Stat Lab 12/13/23 13:10 Results Laboratory Results WBC 7.36 10^3/uL (3.29-11.43) 12/14/23 09:05 RBC 3.23 10^6/uL (3.85-5.65) L 12/14/23 09:05 Hgb 10.10 g/dL (11.27-16.99) L 12/14/23 09:05 Hct 30.8 % (36-47) L 12/14/23 09:05 MCV 95.4 fl (85-98) 12/14/23 09:05 MCH 31.3 pg (27-33) 12/14/23 09:05 MCHC 32.8 g/dL (30-55) 12/14/23 09:05 RDW 13.9 % (12.1-15.1) 12/14/23 09:05 Plt Count 145 10^3/cmm (157-399) L 12/14/23 09:05 MPV 10.7 fL (7.4-10.4) H 12/14/23 09:05 Neut % (Auto) 79.9 % 12/13/23 13:56 Lymph % (Auto) 11.8 % 12/13/23 13:56 [place] % (Auto) 7.5 % 12/13/23 13:56 Eos % (Auto) 0.3 % 12/13/23 13:56 Baso % (Auto) 0.1 % 12/13/23 13:56 Neut # (Auto) 7.11 10^3/uL (1.8-7.7) 12/13/23 13:56 Lymph # (Auto) 1.1 10^3/uL (0.8-4.8) 12/13/23 13:56 [place] # (Auto) 0.7 10^3/uL (0.2-0.9) 12/13/23 13:56 Eos # (Auto) 0.0 10^3/uL (0.0-0.8) 12/13/23 13:56 Baso # (Auto) 0.0 10^3/uL (0.0-0.1) 12/13/23 13:56 Nucleated RBC % (auto) 0 % 12/13/23 13:56 Nucleated RBCs # 0.0 /100WBC 12/13/23 13:56 Sodium 137 mmol/L (136-145) 12/13/23 13:56 Potassium 3.7 mmol/L (3.5-5.1) 12/13/23 13:56 Chloride 103 mmol/L (98-107) 12/13/23 13:56 Carbon Dioxide 19 mmol/L (22-29) L 12/13/23 13:56 Anion Gap 18.7 (5-19) 12/13/23 13:56 BUN 7 mg/dL (6-20) 12/13/23 13:56 Creatinine 0.6 mg/dL (0.5-0.9) 12/13/23 13:56 GFR Calculation 115.9 mL/min (90-130) 12/13/23 13:56 Glucose 127 mg/dL (65-115) H 12/13/23 13:56 Calculated Osmolality 284 mOsm/kg (285-295) L 12/13/23 13:56 Uric Acid 5.8 mg/dL (2.4-5.7) H 12/13/23 13:56 Calcium 8.6 mg/dL (8.5-10.5) 12/13/23 13:56 Total Bilirubin 0.2 mg/dL (0.15-1.2) 12/13/23 13:56 AST 13 U/L (0-32) 12/13/23 13:56 ALT 7 U/L (0-33) 12/13/23 13:56 Alkaline Phosphatase 118 U/L (35-105) H 12/13/23 13:56 Total Protein 6.4 g/dL (6.6-8.7) L 12/13/23 13:56 Albumin 3.2 g/dL (3.5-5.2) L 12/13/23 13:56 Globulin 3.2 g/dL (1.3-4.6) 12/13/23 13:56 Urine Color Yellow (Yellow) 12/13/23 13:10 Urine Appearance Cloudy (CLEAR) A 12/13/23 13:10 Urine pH 6 (5-7) 12/13/23 13:10 Ur Specific [place] 1.015 (1.005-1.030) 12/13/23 13:10 Urine Protein 1+ (Negative) H 12/13/23 13:10 Urine Glucose (UA) Norm (Normal) 12/13/23 13:10 Urine Ketones 1+ (Negative) H 12/13/23 13:10 Urine Blood 3+ (Negative) H 12/13/23 13:10 Urine Nitrate Negative (Negative) 12/13/23 13:10 Urine Bilirubin Neg (Negative) 12/13/23 13:10 Urine Urobilinogen Norm mg/dL (Negative) 12/13/23 13:10 Ur Leukocyte Esterase 1+ (Negative) H 12/13/23 13:10 Urine RBC 10-15 /hpf (0-2) H 12/13/23 13:10 Urine WBC 5-10 /hpf (0-5) H 12/13/23 13:10 Ur Squamous Epith Cells 5-10 /hpf (0-5) H 12/13/23 13:10 Amorphous Sediment Not Reportable 12/13/23 13:10 Urine Bacteria 2+ /hpf (NONE) H 12/13/23 13:10 Urine Mucus Trace /hpf 12/13/23 13:10 U Random Total Protein 36 mg/dL 12/13/23 Unknown Urine Creatinine 132 mg/dL (28-217) 12/13/23 Unknown Protein/Creatinin Ratio 0.27 mg/mg CR 12/13/23 Unknown Urine Opiates Screen Negative ng/mL (Negative) 12/13/23 13:10 Ur Barbiturates Screen Negative ng/mL (Negative) 12/13/23 13:10 Ur Phencyclidine Scrn Negative ng/mL (Negative) 12/13/23 13:10 Ur Amphetamines Screen Negative ng/mL (Negative) 12/13/23 13:10 U Benzodiazepines Scrn Negative ng/mL (Negative) 12/13/23 13:10 Urine Cocaine Screen Negative ng/mL (Negative) 12/13/23 13:10 U Marijuana (THC) Screen Negative ng/mL (Negative) 12/13/23 13:10 RPR Nonreactive (Nonreactive) 12/13/23 13:56 Hep Bs Antigen Non-reactive (Nonreactive) 12/13/23 13:56 HIV 1&2 Ab & HIV 1 Ag Non-reactive (Non-Reactiv) 12/13/23 13:56 HIV 1&2 Antibody Non-reactive (Non-Reactiv) 12/13/23 13:56 Rubella IgG Antibody 15.8 IU/mL (0.0-10.0) H 12/13/23 13:56 Blood Type O Positive 12/13/23 13:56 Rho(D) Type Rh positive 12/13/23 13:56 Antibody Screen Negative 12/13/23 13:56 Vitals Last Vital Signs Temp 98.2 F 12/15/23 04:00 Pulse 91 12/15/23 04:00 Resp 16 12/15/23 04:00 BP 125/81 12/15/23 05:00 Pulse Ox 95 12/15/23 04:00 O2 Del Method Room Air 12/15/23 04:00 Discharge Plan Discharge Patient Disposition: Home Condition: Stable Prescriptions: New labetalol 100 mg tablet 100 mg PO BID PRN (Reason: hypertension) Qty: 30 0RF Rx Instructions: Take 1 tab every 12 hrs if Systolic BP>150 or DBP>100. Continued 28-800 mg-mcg Tablet 1 tab PO DAILY ferrous sulfate 325 mg (65 mg iron) tablet 325 mg PO BID Qty: 30 0RF ibuprofen 800 mg Tablet 800 mg PO TID Qty: 30 0RF Discharge Orders: Discharge Order (Routine); Ordered 12/15/23 Ordered By: Andrew Renteria Referrals: Dot Negrete APN [Primary Care Provider] - 2 weeks Discharge Diet: Regular Discharge Activity: Limit activity as instructed Patient Instructions: Depression (DC), Bleeding (DC), Preeclampsia and Eclampsia After Delivery (GEN), OB Discharge Report, OB Food/Drug Interaction Guide, Opioid Safety, OB [facility] - [facility], OB Vaginal Deliveries, Abnormal Bleeding Activity Restrictions/Additional Instructions: - Keep your activity levels minimal for the next 2 weeks and then gradually increase as long as your blood pressure is staying below 140/90. If your blood pressure is elevating above 150/100, take half a tablet of labetalol every 12 hours. If it is persistently above 150/100 despite this dose, increase to 1 tablet twice a day. - Nothing per vagina for 6 weeks - Showers are recommended instead of baths for the first 6 weeks. Discharge Attestations Time Spent in Discharge Care*: greater than 30 min Quality Metrics Clinical Quality Measures [ No reported AMI, CVA or VTE this stay] Coding Level of Care Code Acute Code for Chg Fwd Diagnoses Spontaneous vaginal delivery O80 Elevated blood pressure reading R03.0
--- NOTE | 2023-12-15 09:42 | ANE.PACU2 ---
Inpatient post-anesthesia follow up: Airway intact: Yes Vital signs: Temperature 98.2 F Pulse Rate 91 Respiratory Rate 16 Blood Pressure 125/81 Pulse Oximetry 95 Oxygen Delivery Me thod Room Air Oxygen Flow Rate Fraction of Inspir ed Oxygen Hydration adequate: Yes Nausea and vomiting: No Pain level: 1 Mental status: Baseline Epidural Start/End: Epidural Start Date: 12/13/23 Epidural Start Time: 17:49 Epidural End Date: 12/13/23 Epidural End Time: 21:00
[2023-12-15] MEDS: PRENATAL VIT NO.130/IRON/FOLIC 1 EACH TABLET PO (10:47)
[2023-12-15] MEDS: docusate sodium 100 mg Capsule PO (10:47)
[2023-12-15 10:50] VITALS: BP 137/99; PULSE 97; RESP 16; TEMP 36.7
[2023-12-15 18:15] VITALS: BP 143/100; PULSE 103; RESP 16; TEMP 36.8
[2023-12-15 23:53] LABS: Chlamydia Trachomatis RNA TMA NOT DETECTED (NOT DETECTED); Neisseria Gonorrhoeae RNA, TMA NOT DETECTED (NOT DETECTED)
== END 2023-12-15 18:25 | disposition home or self-care (01) | DRG 807 ==
LOC: OPOB 16:53 → OBGYN 16:53
PROVIDERS: Admitting Provider Family Medicine; PCP Nurse Practitioner Family; Visit Provider Family Medicine
DX: O99.214 Obesity complicating childbirth (principal); Z37.0 Single live birth; Z3A.39 39 weeks gestation of pregnancy
CPT/HCPCS: 36415; 51702; 59025; 59409; 80053; 80306; 81001; 82570; 84156; 84550; 85025; 85027; 86592; 86762; 86850; 86900; 87086; 87340; 87491; 87591; 87806; 96374; 99211; J0290; J2795; J3490; J7120; J7121

== ENCOUNTER 2023-12-20 19:18 | Emergency (ER) | payer SELFPAY ==
[2023-12-20] VITALS (18 sets, daily range): BP systolic 121–184; BP diastolic 70–110; PULSE 99–152; RESP 16–31; TEMP 37.2–37.6; O2SAT 95–98; BMI 36.9
--- NOTE | 2023-12-20 19:32 | XRR_ITS ---
PROCEDURE INFORMATION: Exam: XR Chest Exam date and time: 12/20/2023 8:06 PM Age: 33 years old Clinical indication: Patient HX: Fever; Cough; Congestion; Covid x 1mo ago; Vaginal delivery x 1 week ago TECHNIQUE: Imaging protocol: Radiologic exam of the chest. Views: 1 view. COMPARISON: CT cervical spin wo con* [id number] 12/09/2020 12:15 AM FINDINGS: Lungs: Lungs are clear. Pleural spaces: There is no pleural effusion or pneumothorax. Heart/Mediastinum: The cardiac silhouette is within normal limits of size given AP technique. Bones/joints: Bones are unremarkable. XR/XR chest 1V portable [id number] IMPRESSION: No acute findings.
[2023-12-20 19:44] LABS: Basophils % 0.3 %; Eosinophils % 0.3 %; Hematocrit 40.5 % (36-47); Lymphocytes # 0.9 10^3/uL (0.8-4.8); Lymphocytes % 5.9 %; Mean Corpuscular HGB Conc 31.6 g/dL (30-55); Mean Corpuscular Hemoglobin 31.7 pg (27-33); Mean Corpuscular Volume 100.2 fl (85-98); Mean Platelet Volume 9.6 fL (7.4-10.4); Monocytes # 1.2 10^3/uL (0.2-0.9); Monocytes % 7.6 %; Neutrophils # 13.56 10^3/uL (1.8-7.7); Neutrophils % 85.3 %; Nucleated Red Blood Cells % 0 %; Platelet Count 217 10^3/cmm (157-399); Red Blood Count 4.04 10^6/uL (3.85-5.65); Red Cell Distribution Width 13.2 % (12.1-15.1); White Blood Count 15.87 10^3/uL (3.29-11.43)
[2023-12-20] MEDS: metoprolol tartrate 1 mg/1 mL SDV 5 mL 5 MG IVP (19:59)
[2023-12-20 20:09] LABS: Alanine Aminotransferase 26 U/L (0-33); Albumin Level 3.9 g/dL (3.5-5.2); Alkaline Phosphatase 103 U/L (35-105); Anion Gap 19.6 (5-19); Aspartate Amino Transferase 18 U/L (0-32); Blood Urea Nitrogen 17 mg/dL (6-20); Calcium 9.3 mg/dL (8.5-10.5); Carbon Dioxide 23 mmol/L (22-29); Chloride 102 mmol/L (98-107); Creatinine Clr Calc Pharmacy 154.9657; Globulin 2.9 g/dL (1.3-4.6); Glucose 100 mg/dL (65-115); Osmolality Calculated 294 mOsm/kg (285-295); Potassium 3.6 mmol/L (3.5-5.1); Sodium 141 mmol/L (136-145); Total Bilirubin 0.4 mg/dL (0.15-1.2); Total Protein 6.8 g/dL (6.6-8.7)
[2023-12-20 20:10] LABS: INR 0.95 (0.8-1.2)
[2023-12-20 20:14] LABS: Procalcitonin 0.06 ng/mL (0-0.5)
[2023-12-20 20:42] LABS: Lactic Sepsis W/Reflex 2.3 mmol/L (0.5-2.2)
[2023-12-20] MEDS: metoprolol tartrate 25 mg Tablet PO (20:50)
--- NOTE | 2023-12-20 20:56 | CTR_ITS ---
PROCEDURE INFORMATION: Exam: CT Abdomen And Pelvis With Contrast Exam date and time: 12/20/2023 9:24 PM Age: 33 years old Clinical indication: Abdominal pain; Generalized; Patient HX: Diffuse abd pain with fever. Seven days post . TECHNIQUE: Imaging protocol: Computed tomography of the abdomen and pelvis with contrast. Radiation optimization: All CT scans at this facility use at least one of these dose optimization techniques: automated exposure control; mA and/or kV adjustment per patient size (includes targeted exams where dose is matched to clinical indication); or iterative reconstruction. Contrast material: OMNI 350; Contrast volume: 100 ml; Contrast route: INTRAVENOUS (IV); COMPARISON: US OB >= 14 weeks fetus [id number] 04/09/2019 4:30 PM RADIATION DOSE METRICS: Total DLP (mGy-cm): 1028.36 FINDINGS: Lungs: Lung bases are clear. Liver: The liver is mildly enlarged. There is no focal liver abnormality. Gallbladder and bile ducts: The gallbladder is normal. There is no biliary dilation. Pancreas: The pancreas is unremarkable. Spleen: The spleen is moderately enlarged. Adrenal glands: The adrenal glands are unremarkable. Kidneys and ureters: The kidneys are unremarkable. No hydronephrosis or stones. No ureteral dilation. Stomach and bowel: The stomach is nondistended, limiting assessment of wall thickness. The small bowel is nondilated. The colon is unremarkable. Appendix: The appendix is normal. Intraperitoneal space: There is no free air or significant intraperitoneal free fluid. Vasculature: The aorta is unremarkable. There is no aneurysm. The portal, splenic and superior mesenteric veins are patent. Lymph nodes: There is no lymphadenopathy in the retroperitoneum, mesentery, pelvis or inguinal regions. Urinary bladder: The urinary bladder is nondistended, limiting assessment of wall thickness. Reproductive: Expected post gravid uterine enlargement. Adnexa are unremarkable. No gas in the endometrial canal. No intrauterine mass. Bones/joints: Bones are unremarkable. Soft tissues: The abdominal wall is intact. CT/CT abdomen pelvis w con* [id number] IMPRESSION: 1. No acute findings. 2. Hepatosplenomegaly.
[2023-12-20] MEDS: iohexol 350 mg/mL 500 mL Btl (per mL) IV (21:25)
[2023-12-20 21:31] LABS: Bilirubin Urine Neg (Negative); Blood Urine 3+ (Negative); Glucose Urine UA Norm (Normal); Ketones Urine Negative (Negative); Nitrate Urine Negative (Negative); Protein Urine Neg (Negative); Urine Appearance Cloudy (CLEAR); Urine Color Yellow (Yellow); Urobilinogen Urine Neg (Negative); pH Urine 5 (5-7)
[2023-12-20 21:32] LABS: Add Urine Culture? Yes; Add Urine Microscopic? YES; Amorphous Sediment Urine TRACE /hpf; Bacteria Urine 3+ /hpf; Leukocyte Esterase Urine 2+ (Negative); Mucus Urine 1+ /hpf; Squamous Epithelial Cell Urine 0-4 /hpf (0-5); WBC Urine 55-80 /hpf (0-5)
[2023-12-20 21:45] LABS: Reflex Lactate Order REFLEX LACTIC ORDERD
[2023-12-20] MEDS: sodium chloride 0.9% 1,000 ML 999 ML IV (21:46)
[2023-12-20] MEDS: cefTRIAXone 1,000 MG in sodium chloride 0.9% (plus) 50 ML 100 MG IV (21:46)
[2023-12-20] MEDS: acetaminophen 500 mg Tablet 1000 MG PO (21:46)
--- NOTE | 2023-12-20 21:55 | ED_ITS ---
HPI - Abdominal Pain 2 General: Chief Complaint: Abdominal Pain Stated Complaint: fever, post ob vaginal delivery 7 days ago Time Seen by Provider: 12/20/23 19:32 History of Present Illness: 33-year-old female presents emerged part with complaints of intermittent fever of 102.1 ?F at home. She is x 1 week of a normal vaginal delivery. She states that she was COVID-positive approximately 1 month ago and does have an intermittent nonproductive cough. She states that she also has increased urinary frequency, dysuria and lower abdominal pain that she states is a 4 out of 10 dull and aching type feeling. She states she also has nausea generalized fatigue and malaise as well as generalized bodyaches. She states that she was treated for preeclampsia and was provided metoprolol for her hypertension and tachycardia at the time of discharge after delivery of her child. Associated Symptoms: Reports chills, dysuria, fever(s) and nausea Review of Systems 2 General: Reports: 10 or more systems reviewed and unremarkable except in HPI and below Const: Reports: fever(s), chills, body aches, fatigue and malaise GI: Reports: abdominal pain and nausea : Reports: dysuria and urinary frequency PFSH ED 2 PFSH: Surgical History No pertinent past surgical history Social History (Updated 12/13/23 @ 17:59 by Andrew Renteria MD) Smoking and tobacco/nicotine status: never used tobacco/nicotine Alcohol intake: former Former alcohol use details: . Physical Exam 2 Narrative: EXAM NARRATIVE: Constitutional: the patient appears well nourished and of normal development. Vital signs as documented. No acute distress at present. Alert and oriented-to person, place, time and situation. Head, eyes, ears, nose, mouth, throat: Normocephalic, atraumatic. Pupils-equal, round, reactive to light. No scleral icterus. Normal-appearing external ears. Normal appearing nasal turbinates, no drainage. No obvious oral lesions, posterior oropharynx without erythema or exudates. Neck: Supple, trachea is midline, no lymphadenopathy, no jugular venous distension, thyromegaly, or carotid bruits. Carotid upstrokes are brisk bilaterally. Lungs: clear to auscultation to all lung flores. Symmetrical rise and fall of chest, no obvious signs of increased work of breathing at present. Cardiac: Sinus tachycardia, positive S1, S2. No murmurs, rubs or gallops that I can appreciate Abdomen: Soft, slightly tender to palpation to the lower abdomen., normal active bowel sounds to all quadrants. No palpable masses, no organomegaly and abdominal bruits. Extremities: 2+ pulses in the upper extremities that are equal bilaterally, 2+ pulses in the lower extremities that are equal bilaterally. Non-edematous. Moves all extremities well, sensation to all extremities are noted. Skin: Warm, dry, intact. Course 2 Vital Signs: Vital signs: Vital Signs Temperature 98.9 F 12/20/23 23:15 Pulse Rate 100 12/20/23 23:15 Respiratory Rate 18 12/20/23 23:15 Blood Pressure 126/73 12/20/23 23:15 Pulse Oximetry 97 12/20/23 23:15 Oxygen Delivery Me thod Room Air 12/20/23 23:15 MDM - Abdominal Pain Medical Decision Making Physical exam completed documented. Patient does have an elevated WBC of 15.8 and lactic acid of 2.3 urine does show 2+ leukocytes, 50-80 urine WBCs per high-power field, 3+ bacteria and 3+ blood. Patient does have an elevated temperature and did receive Tylenol 1000 mg p.o. the patient's chest x-ray was negative. Her urine was positive for 1+ yeast. Patient is currently breast-feeding and I have evaluated the patient's planned discharge medication and they are safe for . Patient did receive Rocephin here in the emergency department and states she feels much better. I have provided prescriptions and discharge instructions and will have the patient follow-up with her [employer] or primary care provider. Medical Records I reviewed the patient's medical records. Lab Data I reviewed the patient's lab results. 12/20/23 15:35 12/20/23 15:35 Labs/Radiology: Radiology Impressions Chest X-Ray 12/20/23 19:32 IMPRESSION: No acute findings. Abdomen/Pelvis CT 12/20/23 20:56 IMPRESSION: 1. No acute findings. 2. Hepatosplenomegaly. Laboratory Results WBC 15.87 10^3/uL (3.29-11.43) H 12/20/23 15:35 RBC 4.04 10^6/uL (3.85-5.65) 12/20/23 15:35 Hgb 12.80 g/dL (11.27-16.99) 12/20/23 15:35 Hct 40.5 % (36-47) 12/20/23 15:35 MCV 100.2 fl (85-98) H 12/20/23 15:35 MCH 31.7 pg (27-33) 12/20/23 15:35 MCHC 31.6 g/dL (30-55) 12/20/23 15:35 RDW 13.2 % (12.1-15.1) 12/20/23 15:35 Plt Count 217 10^3/cmm (157-399) 12/20/23 15:35 MPV 9.6 fL (7.4-10.4) 12/20/23 15:35 Neut % (Auto) 85.3 % 12/20/23 15:35 Lymph % (Auto) 5.9 % 12/20/23 15:35 [place] % (Auto) 7.6 % 12/20/23 15:35 Eos % (Auto) 0.3 % 12/20/23 15:35 Baso % (Auto) 0.3 % 12/20/23 15:35 Neut # (Auto) 13.56 10^3/uL (1.8-7.7) H 12/20/23 15:35 Lymph # (Auto) 0.9 10^3/uL (0.8-4.8) 12/20/23 15:35 [place] # (Auto) 1.2 10^3/uL (0.2-0.9) H 12/20/23 15:35 Eos # (Auto) 0.0 10^3/uL (0.0-0.8) 12/20/23 15:35 Baso # (Auto) 0.0 10^3/uL (0.0-0.1) 12/20/23 15:35 Nucleated RBC % (auto) 0 % 12/20/23 15:35 Nucleated RBCs # 0.0 /100WBC 12/20/23 15:35 PT 12.90 SECONDS (12.1-14.9) 12/20/23 15:35 INR 0.95 (0.8-1.2) 12/20/23 15:35 Sodium 141 mmol/L (136-145) 12/20/23 15:35 Potassium 3.6 mmol/L (3.5-5.1) 12/20/23 15:35 Chloride 102 mmol/L (98-107) 12/20/23 15:35 Carbon Dioxide 23 mmol/L (22-29) 12/20/23 15:35 Anion Gap 19.6 (5-19) H 12/20/23 15:35 BUN 17 mg/dL (6-20) 12/20/23 15:35 Creatinine 0.7 mg/dL (0.5-0.9) 12/20/23 15:35 GFR Calculation 97.0 mL/min (90-130) 12/20/23 15:35 Glucose 100 mg/dL (65-115) 12/20/23 15:35 Calculated Osmolality 294 mOsm/kg (285-295) 12/20/23 15:35 Lactic Acid 2.3 mmol/L (0.5-2.2) H 12/20/23 19:55 Calcium 9.3 mg/dL (8.5-10.5) 12/20/23 15:35 Total Bilirubin 0.4 mg/dL (0.15-1.2) 12/20/23 15:35 AST 18 U/L (0-32) 12/20/23 15:35 ALT 26 U/L (0-33) 12/20/23 15:35 Alkaline Phosphatase 103 U/L (35-105) 12/20/23 15:35 Total Protein 6.8 g/dL (6.6-8.7) 12/20/23 15:35 Albumin 3.9 g/dL (3.5-5.2) 12/20/23 15:35 Globulin 2.9 g/dL (1.3-4.6) 12/20/23 15:35 Procalcitonin 0.06 ng/mL (0-0.5) 12/20/23 15:35 Urine Color Yellow (Yellow) 12/20/23 21:04 Urine Appearance Cloudy (CLEAR) A 12/20/23 21:04 Urine pH 5 (5-7) 12/20/23 21:04 Ur Specific [place] 1.020 (1.005-1.030) 12/20/23 21:04 Urine Protein Neg (Negative) 12/20/23 21:04 Urine Glucose (UA) Norm (Normal) 12/20/23 21:04 Urine Ketones Negative (Negative) 12/20/23 21:04 Urine Blood 3+ (Negative) H 12/20/23 21:04 Urine Nitrate Negative (Negative) 12/20/23 21:04 Urine Bilirubin Neg (Negative) 12/20/23 21:04 Urine Urobilinogen Neg mg/dL (Negative) 12/20/23 21:04 Ur Leukocyte Esterase 2+ (Negative) H 12/20/23 21:04 Urine RBC 5-10 /hpf (0-2) H 12/20/23 21:04 Urine WBC 55-80 /hpf (0-5) H 12/20/23 21:04 Ur Squamous Epith Cells 0-4 /hpf (0-5) H 12/20/23 21:04 Amorphous Sediment Trace /hpf 12/20/23 21:04 Urine Bacteria 3+ /hpf (NONE) H 12/20/23 21:04 Urine Mucus 1+ /hpf 12/20/23 21:04 Urine Yeast 1+ /hpf H 12/20/23 21:04 All radiology interpretation(s) finalized by discharge Discharge Plan Discharge Patient Disposition: Home Clinical Impression: Hypertension, uncontrolled, Candidiasis of vagina Urinary tract infection Qualifiers: Urinary tract infection type: acute cystitis Hematuria presence: with hematuria Qualified Code(s): N30.01 - Acute cystitis with hematuria Abdominal pain Qualifiers: Abdominal location: lower abdomen, unspecified Qualified Code(s): R10.30 - Lower abdominal pain, unspecified Fever Qualifiers: Encounter type: initial encounter Condition: Stable Prescriptions: New fluconazole 150 mg tablet 150 mg PO ONCE Qty: 2 0RF Rx Instructions: administer on day 1 of therapy, repeat in 7 days cephalexin 500 mg capsule 500 mg PO BID 7 Days Qty: 14 0RF No Action 28-800 mg-mcg Tablet 1 tab PO DAILY ferrous sulfate 325 mg (65 mg iron) tablet 325 mg PO BID Qty: 30 0RF labetalol 100 mg tablet 100 mg PO BID PRN (Reason: hypertension) Qty: 30 0RF Rx Instructions: Take 1 tab every 12 hrs if Systolic BP>150 or DBP>100. ibuprofen 800 mg Tablet 800 mg PO TID Qty: 30 0RF Discharge Orders: Discharge ED (Routine); Ordered 12/20/23 Ordered By: Nazario Ambrose Referrals: Dot Negrete APN [Primary Care Provider] - Discharge Diet: Usual diet Discharge Activity: Resume usual activity Patient Instructions: Abdominal Pain (ED), Opioid Safety, Pain Management Activity Restrictions/Additional Instructions: Activity Restrictions/Additional Instructions: Thank you for choosing [facility] for your healthcare needs today. Please realize that you were seen in the Emergency Department and that we are providing you with an emergency medical screening exam and this may not be a complete and all inclusive of all the testing and or medical work-up that you may need to determine your ailment or severity of your illness. It is very important that you follow-up as instructed with your Primary care provider or Specialist for additional evaluation and to discuss your medical treatment plan. You may return to the Emergency Department should you have concerns or if your condition changes or worsens in any way. Coding Level of Care Code ED [facility] for [facility]
== END 2023-12-20 23:15 | disposition home or self-care (01) ==
PROVIDERS: Emergency Provider Internal Medicine; PCP Nurse Practitioner Family
DX: O86.4 Pyrexia of unknown origin following delivery (principal); O86.22 Infection of bladder following delivery; N30.01 Acute cystitis with hematuria; O98.83 Other maternal infectious and parasitic diseases complicating the puerperium; B37.31 Acute candidiasis of vulva and vagina; O13.5 Gestational [pregnancy-induced] hypertension without significant proteinuria, complicating the puerperium; O90.89 Other complications of the puerperium, not elsewhere classified; R10.30 Lower abdominal pain, unspecified
CPT/HCPCS: 36415; 71045; 74177; 80053; 81001; 83605; 84145; 85025; 85610; 87077; 87086; 87186; 96365; 96375; 99285; J0696; J3490; J7030; Q9967